=== PATIENT | male | born 1980 | race Caucasian/White ===

== ENCOUNTER 2022-03-05 19:57 | Emergency (ER) | payer MEDICAID ==
[~2022-03-05] VITALS: Ht 170.2 cm; Wt 63.5 kg
[2022-03-05] MEDS ORDERED: predniSONE 20 MG TABLET ONE (21:23)
[2022-03-05] MEDS ORDERED: diphenhydrAMINE HCL 50 MG CAPSULE ONE (21:23)
[2022-03-05] MEDS ORDERED: diphenhydrAMINE HCL 25 MG CAPSULE PO ONE (21:30)
[2022-03-05] MEDS ORDERED: predniSONE 50 MG TABLET PO ONE (21:30)
--- NOTE | 2022-03-05 22:46 | NUR ---
TRANSPORTATION ETA 45 MINS
[2022-03-05] MEDS ORDERED: PRED20TA PO (22:49)
[2022-03-05] MEDS ORDERED: EPIN0.3P3 IJ (22:49)
[2022-03-06 00:14] VITALS: BP 125/70
== END 2022-03-06 00:14 | disposition home or self-care (01) ==
LOC: ER 19:59
DX: T78.1XXA Other adverse food reactions, not elsewhere classified, initial encounter (principal); X58.XXXA Exposure to other specified factors, initial encounter
CPT/HCPCS: 99283; Q0163; J7512